=== PATIENT | male | born 1980 | race African-American/Black ===

== ENCOUNTER 2017-01-15 03:19 | Emergency (ER) | payer SELFPAY ==
--- NOTE | ~2017-01-15 | CT71 ---
[facility] A Service of [facility] RADIOLOGY TEXT RESULTS PATIENT: ARGENIS CANTU LOCATION: [facility] : [birth year] UNIT #: [id number] AGE: [address]: Carlton Hutson MD SEX: M ORDER DR: [id number] [facility] [address] [place], [place] [address] [id number] E MR#: [id number] Acc #: [id number] NAME: ARGENIS CANTU : 1980 SEX: M STUDY DATE/TIME: 01/15/2017 03:06 UNIT: [facility] ROOM: STUDY DESCRIPTION: CT Head Wo Contrast Attending Physician: Carlton Hutson M.D. Ordering Physician: Carlton Hutson M.D. Primary Care Physician: Primary Care Physician No MEDICAL IMAGING REPORT This report is preliminary unless electronic signature is present EXAM Head CT, 01/15 at 0306 hours. INDICATIONS Patient intoxicated. Patient reports headache for 3 weeks. Patient also reports a bloody nose. No trauma. TECHNIQUE This CT exam was performed with one or more of the following radiation dose reduction techniques: automatic exposure control, adjustment of mA and/or kV according to patient size, and iterative reconstruction. FINDINGS Axial noncontrast images were obtained from the skull base to the vertex. Ventricular size and configuration are normal. There is no evidence of acute infarct or hemorrhage. There are no extra-axial fluid collections. No mass lesion or mass effect is seen. There are no skull fractures. IMPRESSION Normal noncontrast head CT. Dictated by... Vince Staton Jr., M.D. THIS IS AN ELECTRONICALLY VERIFIED REPORT Vince Staton Jr., M.D. at 01/16/2017 6:40 AM RONALDK/[email or web address] TD: 01/15/2017 13:24 JOB #: [id number] MEDICAL IMAGING REPORT [facility] A Service [facility] RADIOLOGY TEXT RESULTS PATIENT: ARGENIS CANTU LOCATION: [facility] : 82 UNIT #: [id number] AGE: [address]: Carlton Hutson MD SEX: M ORDER DR: SHAYLA
--- NOTE | ~2017-01-15 | CR72 ---
[facility] A Service of [facility] & [facility] RADIOLOGY TEXT RESULTS PATIENT: ARGENIS CANTU LOCATION: [facility] : 82 UNIT #: [id number] AGE: [address]: Carlton Hutson MD SEX: M ORDER DR: [id number] [facility] [address] [place], [place] [address] [id number] E MR#: [id number] Acc #: [id number] NAME: ARGENIS CANTU : 1980 SEX: M STUDY DATE/TIME: 01/15/2017 UNIT: [facility] ROOM: STUDY DESCRIPTION: CR Chest Single View Portable Attending Physician: Carlton Hutson M.D. Ordering Physician: Carlton Hutson M.D. MEDICAL IMAGING REPORT This report is preliminary unless electronic signature is present EXAM Chest x-ray 01/15 at 03:07 INDICATIONS Shortness of air and chest pain and anxiety tonight. Patient intoxicated. FINDINGS AP portable chest was obtained. No comparison. There is cardiomegaly. Lungs are clear. Vascularity is normal. No pneumothorax. IMPRESSION Cardiomegaly, otherwise negative portable chest. Dictated by... Vince Staton Jr., M.D. THIS IS AN ELECTRONICALLY VERIFIED REPORT Vince Staton Jr., M.D. at 01/16/2017 6:40 AM LORI/nelida TD: 01/15/2017 12:50 JOB #: [id number] MEDICAL IMAGING REPORT COPY
--- NOTE | ~2017-01-15 | EKG ---
PATIENT: ARGENIS CANTU UNIT #: [id number] Ventricular Rate: 120 BPM Atrial Rate: 120 BPM P-R Interval: 138 ms QRS Duration: 72 ms Q-T Interval: 308 ms QTC Calculation(Bezet): 435 ms P [place]: 64 degrees Calculated R [place]: 12 degrees Calculated T [place]: 49 degrees Diagnosis Line: Sinus tachycardia Diagnosis Line: Possible Left atrial enlargement Diagnosis Line: Borderline ECG Diagnosis Line: No previous ECGs available Diagnosis Line: Confirmed by RYAN SEALS MD ([id number]) on Diagnosis Line: 01/16/2017 4:06:19 PM INTERPRETING MD: ARNEL FONTANEZ
[2017-01-15 03:48] LABS: BASOPHIL# 0.1 X10e3 (0-0.3); BASOPHIL% 0.4 % (0-2.5); EOSINOPHIL# 0.1 X10e3 (0-0.7); EOSINOPHIL% 0.7 % (0.0-7.0); HEMATOCRIT 45.4 % (38.0-50.0); HEMOGLOBIN 15.4 gm/dL (13.0-16.0); LYMPHOCYTE# 4.7 X10e3 (1.0-3.5); LYMPHOCYTE% 39.4 % (17.0-45.0); MEAN CELL VOLUME 94.8 FL (83-96); MEAN CORPUSCULAR HEMOGLOBIN 32.1 PG (28-34); MEAN CORPUSCULAR HGB CONC 33.9 g/dL (30-36); MEAN PLATELET VOLUME 9.4 FL (6.5-11.5); MONOCYTE# 0.7 X10e3 (0-1.0); NEUTROPHIL# 6.5 X10e3 (1.5-7.1); NEUTROPHIL% 53.5 % (40-75); PLATELET COUNT 224 X10e3 (140-420); RED BLOOD COUNT 4.79 X10e (3.90-5.60); WHITE BLOOD COUNT 12.1 X10e3 (4.0-10.5)
[2017-01-15 03:52] LABS: POC - CKMB 1.9 ng/mL (0.0-7.9); POC - TROPONIN <0.05 ng/mL (<=0.05)
[2017-01-15 03:52] LABS: DIFF IND NO
[2017-01-15 04:09] LABS: ALBUMIN SERUM 4.4 g/dL (3.5-5.0); ALCOHOL BLOOD 147 mg/dL (0); ALKALINE PHOSPHATASE 80 U/L (32-92); ALT (SGPT) 63 U/L (10-40); AST (SGOT) 49 U/L (10-42); BILIRUBIN,TOTAL 0.5 mg/dL (0.2-2.0); BLOOD UREA NITROGEN 13 mg/dL (9-23); CALCIUM SERUM 8.6 mg/dL (8.4-10.2); CARBON DIOXIDE 21 mmol/L (22-31); CHLORIDE 105 mmol/L (100-111); GLOM FILT RATE Estimated ABOVE60 mL/min (>60); GLUCOSE FASTING 94 mg/dL (70-110); POTASSIUM 3.2 mmol/L (3.5-5.1); PROTEIN TOTAL SERUM 7.6 g/dL (6.0-8.3); SODIUM 139 mmol/L (135-145)
[2017-01-15 04:10] LABS: BILIRUBIN, DIRECT <0.1 mg/dL (0.0-0.2); BILIRUBIN,INDIRECT 0.4 mg/dL (0.0-0.9)
[2017-01-15 05:16] LABS: POC - CKMB 1.1 ng/mL (0.0-7.9); POC - TROPONIN <0.05 ng/mL (<=0.05)
[2017-01-15 06:46] LABS: AMPHETAMINE NEG (NEG); BARBITURATES NEG (NEG); BENZODIAZEPINES NEG (NEG); COCAINE NEG (NEG); MARIJUANA POS (NEG); OPIATES NEG (NEG); TRICYCLIC ANTIDEPRESSANTS NEG (NEG); U METHADONE NEG (NEG)
== END 2017-01-15 05:35 | disposition home or self-care (01) ==
LOC: CED 03:19
PROVIDERS: Emergency Medicine
DX: R07.9 Chest pain, unspecified (principal); F10.129 Alcohol abuse with intoxication, unspecified; F41.9 Anxiety disorder, unspecified; F17.200 Nicotine dependence, unspecified, uncomplicated
CPT/HCPCS: 36415; 70450; 71010; 80048; 80076; 80307; 82553; 83880; 84484; 85025; 85379; 93005; 96360; 99284; G0480